=== PATIENT | male | born 1960 | race Caucasian/White ===

== ENCOUNTER 2021-08-08 11:55 | Emergency (ER) | payer OTHER, SELFPAY ==
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
[2021-08-08 12:05] VITALS: BP 143/83; BP 170/100; PULSE 77; PULSE 78; RESP 16; TEMP 36.6; O2SAT 95; O2SAT 96; BMI 78.4
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
[2021-08-08 13:17] LABS: Prothrombin Time 11.1 SEC (9.9-13.0)
== END 2021-08-08 13:49 | disposition home or self-care (01) ==
PROVIDERS: Emergency Medicine; Emergency Provider Emergency Medicine; PCP Internal Medicine
DX: S16.1XXA Strain of muscle, fascia and tendon at neck level, initial encounter (principal); S43.402A Unspecified sprain of left shoulder joint, initial encounter; S39.012A Strain of muscle, fascia and tendon of lower back, initial encounter; E11.9 Type 2 diabetes mellitus without complications; V53.5XXA Driver of pick-up truck or van injured in collision with car, pick-up truck or van in traffic accident, initial encounter; Y93.9 Activity, unspecified; Y92.410 Unspecified street and highway as the place of occurrence of the external cause; Y99.9 Unspecified external cause status
CPT/HCPCS: 36415; 72100; 72125; 73030; 85610; 99283; 99284